=== PATIENT | male | born 1965 | race Caucasian/White ===

== ENCOUNTER → 2024-12-27 10:16 | Outpatient (BNVA) | payer BC, SELFPAY | PROVIDERS: PCP Nurse Practitioner Family; Visit Provider Nurse Practitioner Family | DX: I10 Essential (primary) hypertension (principal) | CPT/HCPCS: 80053; 80061; 84443; 85025; G0103 ==

== ENCOUNTER 2025-04-19 15:22 | Outpatient (CLI) | payer BC, SELFPAY ==
--- NOTE | 2025-04-19 15:15 | CT_ITS ---
WS: [id number] LDCT LUNG CANCER SCREENING TECHNIQUE: Noncontrast CT of the chest with coronal and sagittal reformatted images. CLINICAL INFORMATION: Z12.2 - Encounter for screening for malignant neoplasm of... COMPARISON: None. DLP: 69.01 mGy.cm DIvol: Mean CTDIvol: 1.40 (mGy) All CT scans at [facility] use at least one of these dose optimization techniques: automated exposure control; mA and/or kV adjustment per patient size (includes targeted exams where dose is matched to clinical indication); or iterative reconstruction. FINDINGS: Subsegmental atelectasis in the RIGHT middle lobe. Calcified granuloma LEFT upper lobe. Small irregular opacity in the RIGHT upper lobe anteriorly measuring 4 mm. No suspicious pulmonary abnormalities. Aortic calcification. No mediastinal or hilar lymphadenopathy. No axillary lymphadenopathy. Adrenal glands are normal. Small esophageal hiatal hernia. Few low-attenuation lesions in the liver may represent hepatic cysts but technically indeterminate. This could be followed up with contrast-enhanced CT abdomen pelvis. Adrenal glands are normal. Mild thoracic kyphosis. CT/CT lung screening [id number] IMPRESSION: A few small low-attenuation lesions in the liver may represent hepatic cysts bu t technically indeterminate. Recommend follow up with contrast-enhanced CT abdo men pelvis. LUNG-RADS: 2S-Benign Appearance or Behavior with Significant Findings FOLLOW UP: 12 Month: Continue annual screening with LDCT
== END 2025-04-19 15:23 | disposition home or self-care (01) ==
LOC: RAD 15:22
PROVIDERS: PCP Nurse Practitioner Family; Visit Provider Nurse Practitioner Family
DX: Z12.2 Encounter for screening for malignant neoplasm of respiratory organs (principal); J98.11 Atelectasis; J98.4 Other disorders of lung; K44.9 Diaphragmatic hernia without obstruction or gangrene; K76.9 Liver disease, unspecified; M40.204 Unspecified kyphosis, thoracic region
CPT/HCPCS: 71271